=== PATIENT | female | born 1945 | race Hispanic/Latino ===

== ENCOUNTER 2018-10-27 15:48 | Emergency (ER) | payer MEDICARE ==
--- NOTE | 2018-10-27 16:31 | Emergency Department Report ---
ED General Adult HPI - General Chief complaint: Dyspnea/Respdistress Stated complaint: STANLEY Time Seen by Provider: 10/27/18 16:02 Source: patient, EMS (ems notes not available at time of chart dictation), RN notes reviewed, old records reviewed Mode of arrival: Stretcher Limitations: Other (patient is a poor historian) - History of Present Illness Initial comments: This is a 72-year-old female. The patient is not known to this provider previously. Patient has a history of stroke, depression, diabetes, hypertension, high cholesterol. Patient typically follows with the [facility]. The patient is brought to the hospital by EMS. 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 The patient reports that she is ambulatory with a cane at baseline, denies recent travel, surgeries, posterior leg pain, posterior leg swelling. The patient reports no change in her exercise tolerance, and she further reports that her breathing simply feels "off." This is an intermittent pain with sensation, does not radiate anywhere, does not appear to have exacerbating or relieving factors. The patient specifically denies exertional shortness of breath and shortness of breath at rest. -: Gradual, days(s) Radiation: other Quality: other Consistency: other Improves with: other Worsens with: other Associated Symptoms: denies: confusion, chest pain, cough, diaphoresis, fever/chills, headaches, loss of appetite, malaise, nausea/vomiting, rash, seizure, shortness of breath, syncope, weakness - Related Data Home Medications Medication Instructions Recorded Confirmed Last Taken Escitalopram [Lexapro] 10 mg PO QDAY 09/22/16 09/22/16 Unknown amLODIPine [Norvasc] 5 mg PO DAILY 09/22/16 09/22/16 Unknown traZODone [Desyrel] 100 mg PO DAILY 09/22/16 09/22/16 Unknown Previous Rx's Medication Instructions Recorded Last Taken Type AtorvaSTATin [Lipitor] 40 mg PO HS tablet 09/24/16 Unknown Rx Escitalopram [Lexapro] 10 mg PO QDAY oral.liqd 09/24/16 Unknown Rx Magnesium Oxide [Magnesium] 400 mg PO QDAY #10 capsule 10/27/18 Unknown Rx Allergies Allergy/AdvReac Type Severity Reaction Status Date / Time cortisone Allergy Swelling Verified 09/22/16 13:08 etanercept [From Enbrel] Allergy Bleeding Verified 09/22/16 13:08 halothane Allergy Unknown Verified 09/22/16 13:08 ED Review of Systems ROS: Stated complaint: STANLEY Other details as noted in HPI Constitutional: denies: fever, malaise, weakness Eyes: denies: vision change ENT: denies: epistaxis Respiratory: denies: shortness of breath Cardiovascular: denies: chest pain Gastrointestinal: denies: abdominal pain, nausea, vomiting Musculoskeletal: denies: as per HPI, arthralgia, myalgia Skin: denies: lesions Neurological: denies: weakness Psychiatric: anxiety ED Past Medical Hx - Past Medical History Previous Medical History?: Yes Hx Hypertension: Yes Hx CVA: Yes (x4) Hx Diabetes: Yes Hx Psychiatric Treatment: Yes - Surgical History Past Surgical History?: Yes Additional Surgical History: knee surgery - Social History Smoking Status: Never Smoker Substance Use Type: None - Medications Home Medications: Home Medications Medication Instructions Recorded Confirmed Last Taken Type Escitalopram [Lexapro] 10 mg PO QDAY 09/22/16 09/22/16 Unknown History amLODIPine [Norvasc] 5 mg PO DAILY 09/22/16 09/22/16 Unknown History traZODone [Desyrel] 100 mg PO DAILY 09/22/16 09/22/16 Unknown History AtorvaSTATin [Lipitor] 40 mg PO HS tablet 09/24/16 Unknown Rx Escitalopram [Lexapro] 10 mg PO QDAY oral.liqd 09/24/16 Unknown Rx Magnesium Oxide [Magnesium] 400 mg PO QDAY #10 capsule 10/27/18 Unknown Rx ED Physical Exam - General Limitations: No Limitations, Other (during the history and physical, patient has episodes of rapid breathing, which resolved when she is distracted, when she is pondering an answer to question, or when she is responding.) General appearance: alert, anxious - Head Head exam: Present: atraumatic, normocephalic - Eye Eye exam: Present: normal appearance, EOMI. Absent: nystagmus - ENT ENT exam: Present: normal exam, normal orophraynx, mucous membranes moist, normal external ear exam - Neck Neck exam: Present: normal inspection, full ROM. Absent: tenderness, meningism us - Respiratory Respiratory exam: Present: normal lung sounds bilaterally. Absent: respiratory distress - Cardiovascular Cardiovascular Exam: Present: regular rate, normal rhythm, normal heart sounds. Absent: bradycardia, tachycardia, irregular rhythm, systolic murmur, diastolic murmur, rubs, gallop - GI/Abdominal GI/Abdominal exam: Present: soft. Absent: distended, tenderness, guarding, rebound, rigid, pulsatile mass - Extremities Exam Extremities exam: Present: normal inspection, full ROM, other (2+ pulses noted in the bilateral upper, lower extremities. Compartments soft. No long bony tenderness. The pelvis is stable.). Absent: pedal edema, joint swelling, calf tenderness - Back Exam Back exam: Present: normal inspection, full ROM. Absent: tenderness, CVA tenderness (R), paraspinal tenderness, vertebral tenderness - Neurological Exam Neurological exam: Present: alert, other (Extraocular movements intact. Tongue midline. No facial droop. Facial sensation intact to light touch in the V1, V2, V3 distribution bilaterally. 5 and 5 strength in 4 extremities.. Sensation is intact to light touch in 4 extremities.). Absent: motor sensory deficit - Psychiatric Psychiatric exam: Present: anxious - Skin Skin exam: Present: warm, dry, intact, normal color. Absent: rash ED Course Vital Signs 10/27/18 10/27/18 10/27/18 15:53 15:57 16:01 Temperature 98.7 F Pulse Rate 82 86 Respiratory 30 H 19 Rate Blood Pressure 172/71 172/71 O2 Sat by Pulse 99 99 99 Oximetry 10/27/18 10/27/18 10/27/18 16:15 16:30 16:31 Temperature Pulse Rate 100 H 82 Respiratory 17 26 H Rate Blood Pressure 172/71 200/99 O2 Sat by Pulse 99 100 98 Oximetry 10/27/18 10/27/18 10/27/18 16:45 17:01 17:15 Temperature Pulse Rate 80 88 79 Respiratory 33 H 19 15 Rate Blood Pressure 200/99 200/99 200/99 O2 Sat by Pulse 98 98 99 Oximetry 10/27/18 10/27/18 10/27/18 17:31 17:45 18:01 Temperature Pulse Rate 81 84 73 Respiratory 11 L 10 L 18 Rate Blood Pressure 151/77 151/77 166/79 O2 Sat by Pulse 99 98 99 Oximetry 10/27/18 10/27/18 18:15 18:31 Temperature Pulse Rate 80 Respiratory 12 Rate Blood Pressure 166/79 166/79 O2 Sat by Pulse 96 98 Oximetry - Reevaluation(s) Reevaluation #1: 10/27/18 16:29 Differential diagnosis, including but not limited to: Arrhythmia, anemia, pneumothorax, pneumonia, anxiety, conversion disorder Assessment and plan: 72-year-old female with a complaint of painless sensation of "my breathing is off." The patient is afebrile with reassuring vital signs with the exception of elevated blood pressure. On my direct physical ex amination, when she is distracted, talking, or considering her response, her respiratory rate slows down, to an appropriate number, approximately 14-16 breaths for minute. She has no leg pain or leg swelling, no lower extremity asymmetry, she is not tachycardic and she is not hypoxic. For these reasons, I think thromboembolic disease, or pulmonary embolus is extremely unlikely. We will obtain screening laboratory studies an x-ray of the chest. EKG appears to be unremarkable at this point in time. Reevaluation #2: 10/27/18 19:02 Patient is observed in the emergency room for approximately 3-1/2 hours. She is walking around without difficulty, x-ray of the chest is unremarkable, vital signs have remained unremarkable, with the exception of elevated blood pressure. Laboratory studies do not demonstrate significant anemia, and she is found to have incidental mild hypomagnesemia. Contacted the [facility], and discussed the case with physician sae cottrell. They're going to contact the patient and arranged outpatient follow-up. The does not appear to be in objective medical emergency or medical condition at this time. The patient may follow up as an outpatient. ED Medical Decision Making - Lab Data Result diagrams: 10/27/18 17:46 10/27/18 17:46 Vital Signs 10/27/18 15:53 Temperature 98.7 F Pulse Rate 82 Respiratory 30 H Rate Blood Pressure 172/71 O2 Sat by Pulse 99 Oximetry - EKG Data -: EKG Interpreted by Me EKG shows normal: sinus rhythm, axis, intervals, QRS complexes, ST-T waves Rate: normal - EKG Data When compared to previous EKG there are: previous EKG unavailable - Radiology Data Radiology results: pending, report reviewed, image reviewed X-ray of the chest is negative for acute disease Critical care attestation.: If time is entered above; I have spent that time in minutes in the direct care of this critically ill patient, excluding procedure time. ED Disposition Clinical Impression: Elevated blood pressure reading, Hypomagnesemia Disposition: TO HOME OR SELFCARE Is pt being admited?: No Does the pt Need Aspirin: No Condition: Good Additional Instructions: Continue outpatient medications. Follow-up with her private physician within the [facility] within the next 5-7 days. Return to the ER right away with fevers, chills, lethargy, irritability, projectile vomiting, change in mental status, confusion, inability to speak, inability to breathe, new, worsening or different symptoms. Referrals: SHIRLEY NEWMAN MD [Primary Care Provider] - 3-5 Days
[2018-10-27 18:13] LABS: BUN/Creatinine Ratio 23; Blood Urea Nitrogen 18 mg/dL (7-17); Calcium 9.1 mg/dL (8.4-10.2); Hemolysis Index 19
--- NOTE | 2018-10-27 18:14 | XRay Report ---
FINAL REPORT PROCEDURE: Chest. TECHNIQUE: Portable AP view. HISTORY: Dyspnea. COMPARISON: No prior studies are available for comparison. FINDINGS: The radiograph is underpenetrated. The heart size is normal. There is calcification in the aortic arc h. The lungs are grossly clear. There are no pleural effusions. The soft tissues are unremarkable. Th ere is some deformity in the proximal diaphysis of the left humerus. This could represent an old frac ture or possibly the site of a previous osteochondroma. IMPRESSION: No evidence of acute cardiopulmonary disease.
[2018-10-27] MEDS ORDERED: MAG-OX PO STA (18:15)
[2018-10-27 18:27] LABS: INR 0.92 (0.87-1.13)
[2018-10-27 18:28] LABS: Partial Thromboplastin Time 23.2 Sec. (24.2-36.6)
[2018-10-27 18:42] VITALS: BP 166/79
[2018-10-27 18:58] LABS: Hematocrit 40.1 % (30.3-42.9); Hemoglobin 13.4 gm/dl (10.1-14.3); Mean Corpuscular HGB Conc 33 % (30-34); Mean Corpuscular Volume 91 fl (79-97); Platelet Count 246 K/mm3 (140-440); Red Blood Count 4.42 M/mm3 (3.65-5.03); Red Cell Distribution Width 13.3 % (13.2-15.2)
== END 2018-10-27 19:41 | disposition home or self-care (01) ==
LOC: ED 15:48
DX: I10 Essential (primary) hypertension (principal); E83.42 Hypomagnesemia; Z86.73 Personal history of transient ischemic attack (TIA), and cerebral infarction without residual deficits; E11.9 Type 2 diabetes mellitus without complications; Z88.8 Allergy status to other drugs, medicaments and biological substances
CPT/HCPCS: 36415; 71045; 80048; 82550; 83735; 85027; 85610; 85730; 93005; 93010

== ENCOUNTER 2019-08-03 18:31 | Emergency (ER) | payer MEDICARE ==
[2019-08-03] MEDS ORDERED: SODIUM CHLORIDE 0.9% 1000 ML 1,000 ML ONE (19:18)
[2019-08-03] MEDS ORDERED: SODIUM CHLORIDE 0.9% 1000 ML IV SOLN IV ONE (19:21)
[2019-08-03 19:40] LABS: Basophils # (Auto) 0.1 K/mm3 (0.0-0.1); Basophils % (Auto) 0.4 % (0.0-1.8); Eosinophils # (Auto) 0.2 K/mm3 (0.0-0.4); Eosinophils % (Auto) 1.3 % (0.0-4.3); Hematocrit 39.1 % (30.3-42.9); Hemoglobin 12.5 gm/dl (10.1-14.3); Lymphocytes # (Auto) 1.4 K/mm3 (1.2-5.4); Mean Corpuscular HGB Conc 32 % (30-34); Mean Corpuscular Volume 93 fl (79-97); Monocytes # (Auto) 0.7 K/mm3 (0.0-0.8); Monocytes % (Auto) 4.8 % (0.0-7.3); Platelet Count 274 K/mm3 (140-440); Red Blood Count 4.19 M/mm3 (3.65-5.03); Red Cell Distribution Width 13.9 % (13.2-15.2)
[2019-08-03 19:43] LABS: INR 1.02 (0.87-1.13)
[2019-08-03 19:52] LABS: Alanine Aminotransferase 12 units/L (7-56); Albumin 3.6 g/dL (3.9-5); BUN/Creatinine Ratio 21; Blood Urea Nitrogen 23 mg/dL (7-17); Calcium 8.9 mg/dL (8.4-10.2); Hemolysis Index 13
--- NOTE | 2019-08-03 20:05 | Cat Scan Report ---
CT BRAIN: 08/03/2019 INDICATION / CLINICAL INFORMATION: ams. COMPARISON: None available. FINDINGS: BRAIN/INTRACRANIAL STRUCTURES: Unenhanced CT images of the brain demonstrate no evidence of acute int racranial abnormality. Ventricles and sulci are prominent in size, consistent with pronounced diffuse cerebral atrophy. Chronic white matter hypoattenuation is present throughout the cerebral hemispheric white matter. Andrzej e chronic changes are present in the deep white matter bilaterally. There is no evidence of acute ischemic injury, hemorrhage, or mass. There are no abnormal extra-axial fluid collections. Atherosclerotic vascular calcifications are present in the distal internal carotid arteries and verte bral arteries. EXTRACRANIAL STRUCTURES: Unremarkable. IMPRESSION: No acute abnormality. No definite correlate for altered mental status noted. All CT scans at this location are performed using dose reduction to ALARA by means of automated expos ure control. Signer Name: Trent Garcia MD Signed: 08/03/2019 8:00 PM Workstation Name: [id number]
--- NOTE | 2019-08-03 20:14 | Cat Scan Report ---
CT CERVICAL SPINE: 08/03/2019 INDICATION / CLINICAL INFORMATION: Altered mental status. COMPARISON: None available. FINDINGS: CT images of the cervical spine were obtained. Images are evaluated in the axial, coronal, and sagit redd planes. Degenerative changes are present throughout the cervical spine. Disc space narrowing and osteophyte formation is present at C3-4, C4-5, C5-6, and C6-7 levels. Modera te bilateral facet degenerative changes are present at all levels. C7-T1: Grade 1 anterolisthesis associated with mild facet degenerative changes. C6-7: Disc space narrowing and disc bulging associated with osteophyte formation. There is evidence o f bilateral foraminal narrowing. Roro graph C5-6: Disc space narrowing and circumferential osteophyte formation, which may be the result of end-stage degenerative change or prior surgery. Moderately samantha re central canal narrowing and right-sided foraminal narrowing is present. C4-5: Moderate disc bulging associated with osteophyte formation, resulting in moderate central canal narrowing and left-sided foraminal encroachment. C3-4: Prominent diffuse disc bulging associated with moderately severe central canal narrowing and bi lateral foraminal narrowing, left greater than right. C2-3: No significant abnormality. CRANIOCERVICAL JUNCTION: Unremarkable. PARASPINAL STRUCTURES: No significant abnormality. Atherosclerotic vascular calcifications are noted. IMPRESSION: Multilevel degenerative changes as detailed above.. All CT scans at this location are performed using dose reduction to ALARA by means of automated expos ure control. Signer Name: Trent Garcia MD Signed: 08/03/2019 8:09 PM Workstation Name: [id number]
--- NOTE | 2019-08-03 20:35 | Emergency Department Report ---
ED Altered Mental Status HPI - General Chief Complaint: Altered Mental Status Stated Complaint: AMS Time Seen by Provider: 08/03/19 18:55 Source: EMS, old records reviewed Mode of arrival: Stretcher Limitations: Altered Mental Status - History of Present Illness Initial Comments: 73-year-old female has medical history CVA 4, diabetes, and hypertension since the hospital with alteration in mental status. Patient was found altered at a hotel. She was unable to unable to provide any information to EMS. She is more responsive after arrival here. She denies any pain. She does not know what happened. She denies illicit drug abuse or alcohol abuse. Patient presented soiled in feces. - Related Data Home Medications Medication Instructions Recorded Confirmed Last Taken Escitalopram [Lexapro] 10 mg PO QDAY 09/22/16 09/22/16 Unknown amLODIPine 5 mg PO DAILY 09/22/16 09/22/16 Unknown traZODone [Desyrel] 100 mg PO DAILY 09/22/16 09/22/16 Unknown Previous Rx's Medication Instructions Recorded Last Taken Type AtorvaSTATin [Lipitor] 40 mg PO HS tablet 09/24/16 Unknown Rx Escitalopram [Lexapro] 10 mg PO QDAY oral.liqd 09/24/16 Unknown Rx Magnesium Oxide [Magnesium] 400 mg PO QDAY #10 capsule 10/27/18 Unknown Rx Allergies Allergy/AdvReac Type Severity Reaction Status Date / Time cortisone Allergy Swelling Verified 09/22/16 13:08 etanercept [From Enbrel] Allergy Bleeding Verified 09/22/16 13:08 halothane Allergy Unknown Verified 09/22/16 13:08 ED Review of Systems ROS: Stated complaint: AMS Other details as noted in HPI Comment: All other systems reviewed and negative ED Past Medical Hx - Past Medical History Hx Hypertension: Yes Hx CVA: Yes (x4) Hx Diabetes: Yes Hx Psychiatric Treatment: Yes - Surgical History Additional Surgical History: knee surgery - Social History Smoking Status: Unknown if ever smoked - Medications Home Medications: Home Medications Medication Instructions Recorded Confirmed Last Taken Type Escitalopram [Lexapro] 10 mg PO QDAY 09/22/16 09/22/16 Unknown History amLODIPine 5 mg PO DAILY 09/22/16 09/22/16 Unknown History traZODone [Desyrel] 100 mg PO DAILY 09/22/16 09/22/16 Unknown History AtorvaSTATin [Lipitor] 40 mg PO HS tablet 09/24/16 Unknown Rx Escitalopram [Lexapro] 10 mg PO QDAY oral.liqd 09/24/16 Unknown Rx Magnesium Oxide [Magnesium] 400 mg PO QDAY #10 capsule 10/27/18 Unknown Rx ED Physical Exam - General Limitations: Altered Mental Status - Other Other exam information: General: No acute distress Head: Atraumatic Eyes: normal appearance, extraocular movements intact ENT: Moist mucous membranes Neck: Normal appearance, no midline tenderness Chest: Clear to auscultation bilaterally CV: Regular rate and rhythm Abdomen: Soft, normal bowel sounds, nontender, nondistended, no rebound or gua rding Back: Normal inspection Extremity: Normal inspection infection, full range of motion Neuro: Alert O x 3, no facial asymmetry, speech clear, medical upper and lower extremity strength without deficit, sensation grossly intact bilaterally. Sczinv-[id number]-[id number] function intact Psych: Appropriate behavior Skin: No rash ED Course Vital Signs 08/03/19 08/03/19 08/03/19 19:14 19:15 20:00 Temperature 97.8 F Pulse Rate 78 75 80 Respiratory 17 20 15 Rate Blood Pressure 88/21 124/62 Blood Pressure 88/21 [Right] O2 Sat by Pulse 97 100 99 Oximetry 08/03/19 08/03/19 08/03/19 20:15 20:30 20:40 Temperature Pulse Rate 86 86 Respiratory 15 13 20 Rate Blood Pressure 125/64 131/74 Blood Pressure [Right] O2 Sat by Pulse 100 100 Oximetry 08/03/19 08/03/19 08/03/19 20:45 21:00 21:15 Temperature Pulse Rate 85 84 82 Respiratory 16 14 13 Rate Blood Pressure 130/20 113/53 112/61 Blood Pressure [Right] O2 Sat by Pulse 100 100 100 Oximetry 08/03/19 08/03/19 08/03/19 21:31 21:45 22:01 Temperature Pulse Rate 82 Respiratory 14 Rate Blood Pressure 122/50 124/49 122/42 Blood Pressure [Right] O2 Sat by Pulse 99 99 99 Oximetry 08/03/19 08/03/19 08/03/19 22:15 22:31 22:45 Temperature Pulse Rate Respiratory Rate Blood Pressure 122/42 122/42 122/42 Blood Pressure [Right] O2 Sat by Pulse 99 100 100 Oximetry 08/03/19 08/03/1919 23:01 23:15 23:31 Temperature Pulse Rate Respiratory Rate Blood Pressure 122/42 122/42 122/42 Blood Pressure [Right] O2 Sat by Pulse 99 97 100 Oximetry 08/03/19 08/04/19 23:45 00:01 Temperature Pulse Rate Respiratory Rate Blood Pressure 122/42 122/42 Blood Pressure [Right] O2 Sat by Pulse 99 98 Oximetry - Consultations Consultation #1: 08/03/19 22:51 Matthew ADAME paged to discuss admission 08/03/19 23:15 case d/w dr Daley accepted pt for transfer to [facility]. pt informed - Lab Data Result diagrams: 08/03/19 19:16 08/03/19 19:16 Lab Results 08/03/19 08/03/19 08/03/19 Range/Units 19:16 19:16 19:16 WBC 14.1 H (4.5-11.0) K/mm3 RBC 4.19 (3.65-5.03) M/mm3 Hgb 12.5 (10.1-14.3) gm/dl Hct 39.1 (30.3-42.9) % MCV 93 (79-97) fl MCH 30 (28-32) pg MCHC 32 (30-34) % RDW 13.9 (13.2-15.2) % Plt Count 274 (140-440) K/mm3 Lymph % (Auto) 10.0 L (13.4-35.0) % Sharkey % (Auto) 4.8 (0.0-7.3) % Eos % (Auto) 1.3 (0.0-4.3) % Baso % (Auto) 0.4 (0.0-1.8) % Lymph # 1.4 (1.2-5.4) K/mm3 Sharkey # 0.7 (0.0-0.8) K/mm3 Eos # 0.2 (0.0-0.4) K/mm3 Baso # 0.1 (0.0-0.1) K/mm3 Seg Neutrophils % 83.5 H (40.0-70.0) % Seg Neutrophils # 11.8 H (1.8-7.7) K/mm3 PT 13.3 (12.2-14.9) Sec. INR 1.02 (0.87-1.13) APTT 20.0 L (24.2-36.6) Sec. Sodium 135 L (137-145) mmol/L Potassium 4.5 (3.6-5.0) mmol/L Chloride 105.7 (98-107) mmol/L Carbon Dioxide 15 L (22-30) mmol/L Anion Gap 19 mmol/L BUN 23 H (7-17) mg/dL Creatinine 1.1 (0.7-1.2) mg/dL Estimated GFR 49 ml/min BUN/Creatinine Ratio 21 % Glucose 227 H (65-100) mg/dL POC Glucose (70-105) Lactic Acid (0.7-2.0) mmol/L Calcium 8.9 (8.4-10.2) mg/dL Magnesium (1.7-2.3) mg/dL Total Bilirubin 0.40 (0.1-1.2) mg/dL AST 15 (5-40) units/L ALT 12 (7-56) units/L Alkaline Phosphatase 87 (35-129) units/L Ammonia (25-60) umol/L Total Creatine Kinase (30-135) units/L CK-MB (CK-2) (0.0-4.0) ng/mL CK-MB (CK-2) Rel Index (0-4) Troponin T < 0.010 (0.00-0.029) ng/mL Total Protein 6.9 (6.3-8.2) g/dL Albumin 3.6 L (3.9-5) g/dL Albumin/Globulin Ratio 1.1 % TSH (0.270-4.200) mlU/mL Free T4 (0.76-1.46) ng/dL Urine Color (Yellow) Urine Turbidity (Clear) Urine pH (5.0-7.0) Ur Specific [place] (1.003-1.030) Urine Protein (Negative) mg/dL Urine Glucose (UA) (Negative) mg/dL Urine Ketones (Negative) mg/dL Urine Blood (Negative) Urine Nitrite (Negative) Urine Bilirubin (Negative) Urine Urobilinogen (<2.0) mg/dL Ur Leukocyte Esterase (Negative) Urine WBC (Auto) (0.0-6.0) /HPF Urine RBC (Auto) (0.0-6.0) /HPF U Epithel Cells (Auto) (0-13.0) /HPF Urine Bacteria (Auto) (Negative) /HPF Urine Mucus /HPF Urine Yeast (Budding) /HPF Salicylates (2.8-20.0) mg/dL Urine Opiates Screen Urine Methadone Screen Acetaminophen (10.0-30.0) ug/mL Ur Barbiturates Screen Ur Phencyclidine Scrn Ur Amphetamines Screen U Benzodiazepines Scrn Urine Cocaine Screen U Marijuana (THC) Screen Drugs of Abuse Note Plasma/Serum Alcohol (0-0.07) % 08/03/19 08/03/19 08/03/19 Range/Units 19:16 19:16 19:16 WBC (4.5-11.0) K/mm3 RBC (3.65-5.03) M/mm3 Hgb (10.1-14.3) gm/dl Hct (30.3-42.9) % MCV (79-97) fl MCH (28-32) pg MCHC (30-34) % RDW (13.2-15.2) % Plt Count (140-440) K/mm3 Lymph % (Auto) (13.4-35.0) % Sharkey % (Auto) (0.0-7.3) % Eos % (Auto) (0.0-4.3) % Baso % (Auto) (0.0-1.8) % Lymph # (1.2-5.4) K/mm3 Sharkey # (0.0-0.8) K/mm3 Eos # (0.0-0.4) K/mm3 Baso # (0.0-0.1) K/mm3 Seg Neutrophils % (40.0-70.0) % Seg Neutrophils # (1.8-7.7) K/mm3 PT (12.2-14.9) Sec. INR (0.87-1.13) APTT (24.2-36.6) Sec. Sodium (137-145) mmol/L Potassium (3.6-5.0) mmol/L Chloride (98-107) mmol/L Carbon Dioxide (22-30) mmol/L Anion Gap mmol/L BUN (7-17) mg/dL Creatinine (0.7-1.2) mg/dL Estimated GFR ml/min BUN/Creatinine Ratio % Glucose (65-100) mg/dL POC Glucose (70-105) Lactic Acid (0.7-2.0) mmol/L Calcium (8.4-10.2) mg/dL Magnesium (1.7-2.3) mg/dL Total Bilirubin (0.1-1.2) mg/dL AST (5-40) units/L ALT (7-56) units/L Alkaline Phosphatase (35-129) units/L Ammonia 28.0 (25-60) umol/L Total Creatine Kinase (30-135) units/L CK-MB (CK-2) (0.0-4.0) ng/mL CK-MB (CK-2) Rel Index (0-4) Troponin T (0.00-0.029) ng/mL Total Protein (6.3-8.2) g/dL Albumin (3.9-5) g/dL Albumin/Globulin Ratio % TSH (0.270-4.200) mlU/mL Free T4 (0.76-1.46) ng/dL Urine Color (Yellow) Urine Turbidity (Clear) Urine pH (5.0-7.0) Ur Specific [place] (1.003-1.030) Urine Protein (Negative) mg/dL Urine Glucose (UA) (Negative) mg/dL Urine Ketones (Negative) mg/dL Urine Blood (Negative) Urine Nitrite (Negative) Urine Bilirubin (Negative) Urine Urobilinogen (<2.0) mg/dL Ur Leukocyte Esterase (Negative) Urine WBC (Auto) (0.0-6.0) /HPF Urine RBC (Auto) (0.0-6.0) /HPF U Epithel Cells (Auto) (0-13.0) /HPF Urine Bacteria (Auto) (Negative) /HPF Urine Mucus /HPF Urine Yeast (Budding) /HPF Salicylates < 0.3 L (2.8-20.0) mg/dL Urine Opiates Screen Urine Methadone Screen Acetaminophen < 5.0 L (10.0-30.0) ug/mL Ur Barbiturates Screen Ur Phencyclidine Scrn Ur Amphetamines Screen U Benzodiazepines Scrn Urine Cocaine Screen U Marijuana (THC) Screen Drugs of Abuse Note Plasma/Serum Alcohol (0-0.07) % 08/03/19 08/03/19 08/03/19 Range/Units 19:16 19:20 19:56 WBC (4.5-11.0) K/mm3 RBC (3.65-5.03) M/mm3 Hgb (10.1-14.3) gm/dl Hct (30.3-42.9) % MCV (79-97) fl MCH (28-32) pg MCHC (30-34) % RDW (13.2-15.2) % Plt Count (140-440) K/mm3 Lymph % (Auto) (13.4-35.0) % Sharkey % (Auto) (0.0-7.3) % Eos % (Auto) (0.0-4.3) % Baso % (Auto) (0.0-1.8) % Lymph # (1.2-5.4) K/mm3 Sharkey # (0.0-0.8) K/mm3 Eos # (0.0-0.4) K/mm3 Baso # (0.0-0.1) K/mm3 Seg Neutrophils % (40.0-70.0) % Seg Neutrophils # (1.8-7.7) K/mm3 PT (12.2-14.9) Sec. INR (0.87-1.13) APTT (24.2-36.6) Sec. Sodium (137-145) mmol/L Potassium (3.6-5.0) mmol/L Chloride (98-107) mmol/L Carbon Dioxide (22-30) mmol/L Anion Gap mmol/L BUN (7-17) mg/dL Creatinine (0.7-1.2) mg/dL Estimated GFR ml/min BUN/Creatinine Ratio % Glucose (65-100) mg/dL POC Glucose 234 H (70-105) Lactic Acid (0.7-2.0) mmol/L Calcium (8.4-10.2) mg/dL Magnesium 1.80 (1.7-2.3) mg/dL Total Bilirubin (0.1-1.2) mg/dL AST (5-40) units/L ALT (7-56) units/L Alkaline Phosphatase (35-129) units/L Ammonia (25-60) umol/L Total Creatine Kinase (30-135) units/L CK-MB (CK-2) (0.0-4.0) ng/mL CK-MB (CK-2) Rel Index (0-4) Troponin T (0.00-0.029) ng/mL Total Protein (6.3-8.2) g/dL Albumin (3.9-5) g/dL Albumin/Globulin Ratio % TSH (0.270-4.200) mlU/mL Free T4 (0.76-1.46) ng/dL Urine Color (Yellow) Urine Turbidity (Clear) Urine pH (5.0-7.0) Ur Specific [place] (1.003-1.030) Urine Protein (Negative) mg/dL Urine Glucose (UA) (Negative) mg/dL Urine Ketones (Negative) mg/dL Urine Blood (Negative) Urine Nitrite (Negative) Urine Bilirubin (Negative) Urine Urobilinogen (<2.0) mg/dL Ur Leukocyte Esterase (Negative) Urine WBC (Auto) (0.0-6.0) /HPF Urine RBC (Auto) (0.0-6.0) /HPF U Epithel Cells (Auto) (0-13.0) /HPF Urine Bacteria (Auto) (Negative) /HPF Urine Mucus /HPF Urine Yeast (Budding) /HPF Salicylates (2.8-20.0) mg/dL Urine Opiates Screen Urine Methadone Screen Acetaminophen (10.0-30.0) ug/mL Ur Barbiturates Screen Ur Phencyclidine Scrn Ur Amphetamines Screen U Benzodiazepines Scrn Urine Cocaine Screen U Marijuana (THC) Screen Drugs of Abuse Note Plasma/Serum Alcohol < 0.01 (0-0.07) % 08/03/19 08/03/19 08/03/19 Range/Units 19:56 19:56 19:56 WBC (4.5-11.0) K/mm3 RBC (3.65-5.03) M/mm3 Hgb (10.1-14.3) gm/dl Hct (30.3-42.9) % MCV (79-97) fl MCH (28-32) pg MCHC (30-34) % RDW (13.2-15.2) % Plt Count (140-440) K/mm3 Lymph % (Auto) (13.4-35.0) % Sharkey % (Auto) (0.0-7.3) % Eos % (Auto) (0.0-4.3) % Baso % (Auto) (0.0-1.8) % Lymph # (1.2-5.4) K/mm3 Sharkey # (0.0-0.8) K/mm3 Eos # (0.0-0.4) K/mm3 Baso # (0.0-0.1) K/mm3 Seg Neutrophils % (40.0-70.0) % Seg Neutrophils # (1.8-7.7) K/mm3 PT (12.2-14.9) Sec. INR (0.87-1.13) APTT (24.2-36.6) Sec. Sodium (137-145) mmol/L Potassium (3.6-5.0) mmol/L Chloride (98-107) mmol/L Carbon Dioxide (22-30) mmol/L Anion Gap mmol/L BUN (7-17) mg/dL Creatinine (0.7-1.2) mg/dL Estimated GFR ml/min BUN/Creatinine Ratio % Glucose (65-100) mg/dL POC Glucose (70-105) Lactic Acid 1.70 (0.7-2.0) mmol/L Calcium (8.4-10.2) mg/dL Magnesium (1.7-2.3) mg/dL Total Bilirubin (0.1-1.2) mg/dL AST (5-40) units/L ALT (7-56) units/L Alkaline Phosphatase (35-129) units/L Ammonia (25-60) umol/L Total Creatine Kinase 93 (30-135) units/L CK-MB (CK-2) 2.4 (0.0-4.0) ng/mL CK-MB (CK-2) Rel Index 2.5 (0-4) Troponin T (0.00-0.029) ng/mL Total Protein (6.3-8.2) g/dL Albumin (3.9-5) g/dL Albumin/Globulin Ratio % TSH 3.060 (0.270-4.200) mlU/mL Free T4 1.33 (0.76-1.46) ng/dL Urine Color (Yellow) Urine Turbidity (Clear) Urine pH (5.0-7.0) Ur Specific [place] (1.003-1.030) Urine Protein (Negative) mg/dL Urine Glucose (UA) (Negative) mg/dL Urine Ketones (Negative) mg/dL Urine Blood (Negative) Urine Nitrite (Negative) Urine Bilirubin (Negative) Urine Urobilinogen (<2.0) mg/dL Ur Leukocyte Esterase (Negative) Urine WBC (Auto) (0.0-6.0) /HPF Urine RBC (Auto) (0.0-6.0) /HPF U Epithel Cells (Auto) (0-13.0) /HPF Urine Bacteria (Auto) (Negative) /HPF Urine Mucus /HPF Urine Yeast (Budding) /HPF Salicylates (2.8-20.0) mg/dL Urine Opiates Screen Urine Methadone Screen Acetaminophen (10.0-30.0) ug/mL Ur Barbiturates Screen Ur Phencyclidine Scrn Ur Amphetamines Screen U Benzodiazepines Scrn Urine Cocaine Screen U Marijuana (THC) Screen Drugs of Abuse Note Plasma/Serum Alcohol (0-0.07) % 08/03/19 08/03/19 08/03/19 Range/Units 20:40 20:40 23:22 WBC (4.5-11.0) K/mm3 RBC (3.65-5.03) M/mm3 Hgb (10.1-14.3) gm/dl Hct (30.3-42.9) % MCV (79-97) fl MCH (28-32) pg MCHC (30-34) % RDW (13.2-15.2) % Plt Count (140-440) K/mm3 Lymph % (Auto) (13.4-35.0) % Sharkey % (Auto) (0.0-7.3) % Eos % (Auto) (0.0-4.3) % Baso % (Auto) (0.0-1.8) % Lymph # (1.2-5.4) K/mm3 Sharkey # (0.0-0.8) K/mm3 Eos # (0.0-0.4) K/mm3 Baso # (0.0-0.1) K/mm3 Seg Neutrophils % (40.0-70.0) % Seg Neutrophils # (1.8-7.7) K/mm3 PT (12.2-14.9) Sec. INR (0.87-1.13) APTT (24.2-36.6) Sec. Sodium (137-145) mmol/L Potassium (3.6-5.0) mmol/L Chloride (98-107) mmol/L Carbon Dioxide (22-30) mmol/L Anion Gap mmol/L BUN (7-17) mg/dL Creatinine (0.7-1.2) mg/dL Estimated GFR ml/min BUN/Creatinine Ratio % Glucose (65-100) mg/dL POC Glucose (70-105) Lactic Acid 1.10 (0.7-2.0) mmol/L Calcium (8.4-10.2) mg/dL Magnesium (1.7-2.3) mg/dL Total Bilirubin (0.1-1.2) mg/dL AST (5-40) units/L ALT (7-56) units/L Alkaline Phosphatase (35-129) units/L Ammonia (25-60) umol/L Total Creatine Kinase (30-135) units/L CK-MB (CK-2) (0.0-4.0) ng/mL CK-MB (CK-2) Rel Index (0-4) Troponin T (0.00-0.029) ng/mL Total Protein (6.3-8.2) g/dL Albumin (3.9-5) g/dL Albumin/Globulin Ratio % TSH (0.270-4.200) mlU/mL Free T4 (0.76-1.46) ng/dL Urine Color Yellow (Yellow) Urine Turbidity Slightly-cloudy (Clear) Urine pH 5.0 (5.0-7.0) Ur Specific [place] 1.013 (1.003-1.030) Urine Protein 30 mg/dl (Negative) mg/dL Urine Glucose (UA) 50 (Negative) mg/dL Urine Ketones Tr (Negative) mg/dL Urine Blood Neg (Negative) Urine Nitrite Neg (Negative) Urine Bilirubin Neg (Negative) Urine Urobilinogen < 2.0 (<2.0) mg/dL Ur Leukocyte Esterase Lg (Negative) Urine WBC (Auto) 12.0 H (0.0-6.0) /HPF Urine RBC (Auto) 6.0 (0.0-6.0) /HPF U Epithel Cells (Auto) 1.0 (0-13.0) /HPF Urine Bacteria (Auto) 2+ (Negative) /HPF Urine Mucus 1+ /HPF Urine Yeast (Budding) Few /HPF Salicylates (2.8-20.0) mg/dL Urine Opiates Screen Presumptive negative Urine Methadone Screen Presumptive negative Acetaminophen (10.0-30.0) ug/mL Ur Barbiturates Screen Presumptive negative Ur Phencyclidine Scrn Presumptive negative Ur Amphetamines Screen Presumptive negative U Benzodiazepines Scrn Presumptive negative Urine Cocaine Screen Presumptive negative U Marijuana (THC) Screen Presumptive negative Drugs of Abuse Note Disclamer Plasma/Serum Alcohol (0-0.07) % - EKG Data -: EKG Interpreted by De EKG shows normal: sinus rhythm, ST-T waves (no stemi/t inv) Rate: normal - Radiology Data Radiology results: report reviewed (c) ct head: naf ct c spine: multil level degenerative changes. No acute findings cxr: naf - Medical Decision Making Patient presents with alteration in mental status prior to arrival but alert upon presentation to the ER. Initial hypotension improved with IV fluids. At this time and only abnormality is UTI and patient received Rocephin. Patient will be admitted to the hospitalist service for further treatment. - Differential Diagnosis encephalopathy, syncope, arrhythmia, ICh, CVA Critical Care Time: No Critical care attestation.: If time is entered above; I have spent that time in minutes in the direct care of this critically ill patient, excluding procedure time. ED Disposition Clinical Impression: UTI (urinary tract infection), Transient alteration of awareness Disposition: DC/TX-70 ANOTHER TYPE HLTHCARE Is pt being admited?: No Does the pt Need Aspirin: No Condition: Stable Time of Disposition: 23:19 (transfer to [facility] [place])
--- NOTE | 2019-08-03 20:45 | XRay Report ---
CHEST 1 VIEW 08/03/2019 8:22 PM INDICATION / CLINICAL INFORMATION: Altered Mental Status. COMPARISON: 10/27/2018 chest x-ray FINDINGS: SUPPORT DEVICES: None. HEART / MEDIASTINUM: Normal heart size. Atherosclerosis in the thoracic aorta. LUNGS / PLEURA: No significant pulmonary or pleural abnormality. No pneumothorax. ADDITIONAL FINDINGS: No significant additional findings. IMPRESSION: 1. No acute findings. Signer Name: Dimas Avendaño MD Signed: 08/03/2019 8:41 PM Workstation Name: [id number]
[2019-08-03 20:47] LABS: Creatine Kinase MB 2.4 ng/mL (0.0-4.0)
[2019-08-03 20:57] LABS: Free T4 (Free Thyroxine) 1.33 ng/dL (0.76-1.46)
[2019-08-03 21:05] LABS: Bacteria,Urine 2+ /HPF (Negative); Bilirubin,Urine NEG (Negative); Blood,Urine NEG (Negative); Color,Urine Yellow (Yellow); Mucus,Urine 1+ /HPF; Urobilinogen,Urine < 2.0 mg/dL (<2.0)
[2019-08-03 21:10] LABS: Amphetamine Screen,Urine PRESUMPTIVE NEGATIVE; Benzodiazepines Screen,Urine PRESUMPTIVE NEGATIVE; Cannabinoid Screen,Urine PRESUMPTIVE NEGATIVE; Cocaine Screen,Urine PRESUMPTIVE NEGATIVE; Methadone Screen,Urine PRESUMPTIVE NEGATIVE; Opiate Screen,Urine PRESUMPTIVE NEGATIVE
[2019-08-03] MEDS ORDERED: cefTRIAXone/NS 1 GM/50 ML 1 GM/50 ML BAG IV ONE (21:36)
[2019-08-03 22:47] VITALS: BP 122/42
== END 2019-08-04 01:04 | disposition other institution (70) ==
LOC: ED 18:31
DX: R40.4 Transient alteration of awareness (principal); N39.0 Urinary tract infection, site not specified; I10 Essential (primary) hypertension; Z79.899 Other long term (current) drug therapy; Z88.8 Allergy status to other drugs, medicaments and biological substances
CPT/HCPCS: 36415; 70450; 71045; 72125; 80053; 80307; 81001; 82140; 82550; 82553; 82962; 83735; 84439; 84443; 84484; 85025; 85610; 85730; 87040; 87076; 87086; 87186; 93005; 93010; 96361; 96365; 99285; J0696; J7030; 80320; G0480